=== PATIENT | male | born 1970 | race African-American/Black ===

== ENCOUNTER 2024-09-05 12:29 | Emergency (ER) | payer SELFPAY ==
[2024-09-05] VITALS (10 sets, daily range): BP systolic 150–172; BP diastolic 97–102; PULSE 59–74; TEMP 37; O2SAT 96–98; BMI 24.4
--- NOTE | 2024-09-05 12:50 | ECG_ITS ---
The [facility] Test Date: 2024-09-05 Pat Name: MAGI JAVIER Department: Room: - Gender: Male [employer] Driver: : 1970 Requested By: ROSE SHERMAN Order Number: [id number] Reading MD: RJ ANDERSON Measurements Intervals [place] Rate: 64 P: 73 MN: 150 QRS: 82 QRSD: 134 T: 32 QT: 406 QTc: 415 Interpretive Statements 1100 Sinus rhythm 2450 Right bundle branch block 9150 abnormal ECG No previous ECG available for comparison Electronically Signed On 09-06-2024 6:50:31 EST by RJ ANDERSON
--- NOTE | 2024-09-05 12:50 | XR_ITS ---
The [address] [address] Patient Name: MAGI JAVIER MRN: [id number] date: 1970 Sex: M Assigned Patient Location: ER Current Patient Location: ER Accession/Order Number: [id number] Exam Date: 09/05/2024 13:05 Report Date: 09/05/2024 13:26 At the request of: BARRETT VELEZ Procedure: XR chest 2V EXAMINATION: XR chest 2V HISTORY: chest pain COMPARISON: No relevant comparison available. FINDINGS: LUNGS: No significant pulmonary parenchymal abnormalities. VASCULATURE: No increased pulmonary vasculature. PLEURA: No pneumothorax, effusion, or pleural thickening. CARDIAC: No cardiomegaly or cardiac silhouette abnormality. MEDIASTINUM: No visible mass or adenopathy. BONES: No fracture or visible bone lesion. OTHER: Negative. XR/XR chest 2V IMPRESSION: 1. No acute cardiopulmonary process. Electronically authenticated by: MAGY HOLDER Date: 09/05/2024 13:26
--- NOTE | 2024-09-05 12:52 | ED_ITS ---
HPI HPI - General Adult General Chief complaint: Chest Pain Stated complaint: CHEST PAIN Time Seen by Provider: 09/05/24 12:34 Source: patient Mode of arrival: walk-in Limitations: no limitations History of Present Illness HPI narrative: Patient presented to the emergency department for evaluation of chest pain. Patient states that for the last week and a half since Monday of last week he has noted he has been having chest pain. Patient states that he had a couple episodes where he was having coughing, sneezing, URI symptoms, he states 1 time when he was having a coughing fit he felt something pop or pull inside his chest. States that since that time whenever he coughs or sneezes he has to hold onto the left side of the chest because it causes him too much pain if he lets it sneeze or cough without holding onto it. Patient states when he pushes on the left chest wall he can reproduce the pain that he has been having. He states that when he coughs or sneezes he has to push on that spot otherwise it physic something is going to rupture burst from the inside towards the elbow. States when he is not pushing on it, coughing or sneezing he is not having any pain. Patient states when he sitting here at bedside not moving or pushing on it, he does not have any pain, or aching or pressure. Patient has had no nausea, vomiting, sweating. States he has a family history of cancer, but no CAD in any first-degree relatives, states he only smokes cigars intermittently, has a history of hypertension without hyperlipidemia or diabetes or known no recent travel, surgery, can immobility. States his URI symptoms have mostly resolved throughout the course of the week. No other complaints at this time Related Data Home Medications ?Medication ?Instructions ?Recorded ?Confirmed lisinopril 20 mg tablet 20 mg PO DAILY 09/05/24 09/05/24 Allergies Allergy/AdvReac Type Severity Reaction Status Date / Time No Known Drug Allergies Allergy Verified 09/05/24 12:35 Opioid HPI Opioid Management Most Recent Opioid Data: Last Pain Scale 4 09/05/24 12:58 09/05/24 Last MAR Pain Assessment 09/05/24 12:58 Review of Systems 2 ROS Narrative Negative unless otherwise stated in the HPI [facility] Medical History (Updated 09/05/24 @ 14:07 by Lei Malloy MD) Muscle spasms of lower extremity ?M62.838 - Other muscle spasm (ICD-10) Hypertension ?I10 - Essential (primary) hypertension (ICD-10) Social History Little interest or pleasure in doing things: not at all Feeling down, depressed, or hopeless: not at all Exam Narrative Exam Narrative: General: NAD, AAOx3, no distress Respiratory: respiratory effort normal, speaks in full sentences, no tripod position, no accessory muscle use. Lungs clear to auscultation without rhonchi, wheezes, rales, left chest wall left sternal border tender to palpation, reproducing patient's complaint Cardiac: Regular rate and rhythm, no edema, regular s1/s2, no m/g/r Abdomen: Soft, ND/NT. No evidence of fluid wave. No pulsatile masses on exam, rebound tenderness, Terry sign or pain over Mcburney's point. Ext: No calf pain or tenderness Constitutional Vital Signs, click to edit/add: Last Vital Signs Temp 98.6 F 09/05/24 12:32 Pulse 64 09/05/24 13:30 Resp 15 09/05/24 13:30 BP 162/102 H 09/05/24 13:30 Pulse Ox 96 09/05/24 13:30 O2 Del Method Room Air 09/05/24 12:32 Course Vital Signs Vital signs: Vital Signs Temperature 98.6 F 09/05/24 12:32 Pulse Rate 74 09/05/24 12:32 Respiratory Rate 18 09/05/24 12:32 Blood Pressure 172/97 H 09/05/24 12:32 Pulse Oximetry 98 09/05/24 12:32 Oxygen Delivery Method Room Air 09/05/24 12:32 Temperature 98.6 F 09/05/24 12:32 Pulse Rate 64 09/05/24 13:30 Respiratory Rate 15 09/05/24 13:30 Blood Pressure 162/102 H 09/05/24 13:30 Pulse Oximetry 96 09/05/24 13:30 Oxygen Delivery Method Room Air 09/05/24 12:32 Medical Decision Making MDM Narrative Medical decision making narrative: [facility] Patient with history as above presented with chest pain. History obtained from patient. Patient was nontoxic, stable. Ambulatory. Exam as above. EKG reviewed. Potential for other branch block, although patient does appear to have depressions in 2, V4 5 and 6 Labs reviewed. Independently reviewed imaging. Reviewed external records. Differential diagnosis considered. Overall presentation is consistent with chest pain that appears musculoskeletal in nature, the patient does have EKG abnormalities, heart score less than 4 1405 the patient has decided not to proceed with further recommended testing or treatment to determine the cause of their symptoms. The risks and alternatives to the recommendation were discussed, including but not limited to worsening symtoms, infection, sepsis, permanent or disability, sudden cardiac , and the patient voiced understanding. The patient appears clinically to have capacity to make this decision, is currently aaox3, and was able to repeat back to me the risks of leaving AMA. The patient was instructed that he/she could return to the ER at any time to complete the testing or treatment. I discussed the patient I would like to admit him overnight for observation, patient states that he still is not having for the last time, he is self-pay and he cannot stay, he also states his boss would not let him have the time off. Discussed with patient that his EKG is abnormal, but although he does have a heart score less than 4, it is in his best interest to stay. Again reiterates that he cannot and would like to go home Lab Data Labs: Lab Results 09/05/24 Range/Units 12:38 WBC 5.0 (4.0-11.0) 10^3/uL RBC 4.77 (4.70-6.10) 10^6/uL Hgb 14.6 (14.0-18.0) g/dL Hct 42.6 (42.0-54.0) % MCV 89.3 (80.0-94.0) fL MCH 30.6 (25.9-34.0) pg MCHC 34.3 (29.9-35.2) g/dL RDW 13.3 (11.0-15.0) % Plt Count 176 (150-450) 10^3/uL MPV 10.1 (9.5-13.5) fL Neut % (Auto) 57.3 (43.0-75.0) % Lymph % (Auto) 30.0 (20.5-60.0) % [place] % (Auto) 10.7 (1.7-12.0) % Eos % (Auto) 1.4 (0.9-7.0) % Baso % (Auto) 0.4 (0.2-2.0) % Neut # (Auto) 2.8 (1.4-6.5) 10^3/uL Lymph # (Auto) 1.5 (1.2-3.8) 10^3/uL [place] # (Auto) 0.5 (0.3-0.8) 10^3/uL Eos # (Auto) 0.1 (0.0-0.7) 10^3/uL Baso # (Auto) 0.0 (0.0-0.1) 10^3/uL Abs Immat Gran (auto) 0.01 (0.00-0.03) 10^3/uL Imm/Tot Granulo (auto) 0.2 (0.0-0.5) % PT 10.9 (9.0-11.6) sec INR 1.03 APTT 29.0 (22.3-36.2) sec Sodium 146 H (136-145) mmol/L Potassium 4.0 (3.5-5.1) mmol/L Chloride 109 H (98-107) mmol/L Carbon Dioxide 25.9 (21.0-32.0) mmol/L Anion Gap 15.1 BUN 10.0 (7.0-18.0) mg/dL Creatinine 1.19 (0.70-1.30) mg/dL Est GFR ( Amer) >60 (>=60 mL/min/1.73m^2) Est GFR (Non-Af Amer) >60 (>=60 mL/min/1.73m^2) BUN/Creatinine Ratio 8.4 Glucose 101 (74-106) mg/dL Calcium 8.5 (8.5-10.1) mg/dL Total Bilirubin 1.0 (0.2-1.0) mg/dL AST 23 (15-37) U/L ALT 24 (16-63) U/L Alkaline Phosphatase 115 (46-116) U/L Troponin I High Sens 4.9 (4.0-76.1) pg/mL Total Protein 6.7 (6.4-8.2) g/dL Albumin 3.6 (3.4-5.0) g/dL Globulin 3.1 g/dL Albumin/Globulin Ratio 1.2 Discharge Plan Discharge Stand Alone Forms: Portal Instructions Chief Complaint: Chest Pain Clinical Impression: Atypical chest pain, Abnormal EKG Patient Disposition: Left Against Medical Advice Time of Disposition Decision: 14:06 Condition: Good Prescriptions / Home Meds: No Action lisinopril 20 mg tablet 20 mg PO DAILY Print Language: [place] Instructions: Chest Pain (ED) Additional Instructions: Do not leave the hospital. Should you decide to leave, follow-up with your PCP and cardiology soon as possible. Referrals: GERMANIA MUNSON [Physician] - 1 week Physician,Non-Staff, [Physician] - 1 week
[2024-09-05] MEDS: ASPIRIN 81 MG TAB.CHEW 324 MG PO (12:57)
[2024-09-05] MEDS: MORPHINE SULFATE 4 MG/ML VIAL IV (12:58)
[2024-09-05 13:00] LABS: Basophils Percent Auto 0.4 % (0.2-2.0); Eosinophils Absolute Auto 0.1 10^3/uL (0.0-0.7); Eosinophils Percent Auto 1.4 % (0.9-7.0); Hematocrit 42.6 % (42.0-54.0); Hemoglobin 14.6 g/dL (14.0-18.0); Immature Granulocytes Abs Auto 0.01 10^3/uL (0.00-0.03); Immature Granulocytes Pct Auto 0.2 % (0.0-0.5); Lymphocytes Absolute Auto 1.5 10^3/uL (1.2-3.8); Mean Corpuscular HGB Conc 34.3 g/dL (29.9-35.2); Mean Corpuscular Hemoglobin 30.6 pg (25.9-34.0); Mean Corpuscular Volume 89.3 fL (80.0-94.0); Mean Platelet Volume 10.1 fL (9.5-13.5); Monocytes Absolute Auto 0.5 10^3/uL (0.3-0.8); Monocytes Percent Auto 10.7 % (1.7-12.0); Neutrophils Absolute Auto 2.8 10^3/uL (1.4-6.5); Neutrophils Percent Auto 57.3 % (43.0-75.0); Platelet Count 176 10^3/uL (150-450); Red Blood Count 4.77 10^6/uL (4.70-6.10); Red Cell Distribution Width 13.3 % (11.0-15.0)
[2024-09-05 13:18] LABS: INR 1.03; Prothrombin Time 10.9 sec (9.0-11.6)
[2024-09-05 13:21] LABS: Alanine Aminotransferase 24 U/L (16-63); Albumin Globulin Ratio 1.2; Albumin Level 3.6 g/dL (3.4-5.0); Alkaline Phosphatase 115 U/L (46-116); Anion Gap 15.1; Aspartate Amino Transferase 23 U/L (15-37); BUN Creatinine Ratio 8.4; Calcium 8.5 mg/dL (8.5-10.1); Carbon Dioxide 25.9 mmol/L (21.0-32.0); Chloride 109 mmol/L (98-107); Estimated GFR (African America >60 (>=60 mL/min/1.73m^2); Estimated GFR (Non-African Ame >60 (>=60 mL/min/1.73m^2); Globulin 3.1 g/dL; Glucose 101 mg/dL (74-106); Sodium 146 mmol/L (136-145); Total Protein 6.7 g/dL (6.4-8.2); Troponin I High Sensitivity 4.9 pg/mL (4.0-76.1)
== END 2024-09-05 14:18 | disposition left against medical advice (07) ==
PROVIDERS: Emergency Provider Emergency Medicine; PCP Family Medicine
DX: R07.89 Other chest pain (principal); R94.31 Abnormal electrocardiogram [ECG] [EKG]; Z53.29 Procedure and treatment not carried out because of patient's decision for other reasons; I10 Essential (primary) hypertension; F17.290 Nicotine dependence, other tobacco product, uncomplicated
CPT/HCPCS: 36415; 71046; 80053; 84484; 85025; 85610; 85730; 93005; 96374; 99285; J2270